=== PATIENT | female | born 1980 | race Caucasian/White ===

== ENCOUNTER 2016-07-20 17:06 | Emergency (ER) | payer OTHER ==
[2016-07-20] MEDS ORDERED: DIPH/PERTUSS(ACELL)/TETANUS VAC/PF 0.5 ML SYR (>=10YO) IM ONE (17:10)
[2016-07-20] MEDS ORDERED: HYDROCODONE/ACETAMINOPHEN 5-325 MG TABLET PO ONE (17:11)
--- NOTE | 2016-07-20 17:21 | ER Document Report ---
ED Medical Screen (RME) - General Chief Complaint: Finger Injury Stated Complaint: FINGER LACERATION Mode of Arrival: Ambulatory Information source: Patient Notes: 36 y/o F presents to ED c/o laceration/avulsion to distal right 4th finger. Pt reports avulsed tip of finger off with cooking tool. Unknown last tetanus. I have greeted and performed a rapid initial assessment of this patient. A comprehensive ED assessment and evaluation of the patient, analysis of test results and completion of the medical decision making process will be conducted by additional ED providers. TRAVEL OUTSIDE OF THE [place] IN LAST 30 DAYS: No - Related Data Allergies/Adverse Reactions: No Known Allergies Allergy (Verified 07/20/16 17:08) Past Medical History - Social History Chew tobacco use (# tins/day): No Frequency of alcohol use: None Drug Abuse: None - Past Medical History Cardiac Medical History: Denies: Hx Coronary Artery Disease, Hx Heart Attack, Hx Hypertension Pulmonary Medical History: Denies: Hx Asthma, Hx Bronchitis, Hx COPD, Hx Pneumonia Neurological Medical History: Denies: Hx Cerebrovascular Accident, Hx Seizures Endocrine Medical History: Reports: Hx Hypothyroidism Renal/ Medical History: Denies: Hx Peritoneal Dialysis Musculoskeltal Medical History: Denies Hx Arthritis Past Surgical History: Reports: Hx Thyroid Surgery. Denies: Hx Pacemaker - Immunizations Hx Diphtheria, Pertussis, Tetanus Vaccination: No Physical Exam - Extremities Hand: Laceration - avulsion/amputation of lateral aspect distal tip right 4th finger. active bleeding controlled with pressure dressing and elevation
[2016-07-20] MEDS ORDERED: BUPIVACAINE HCL 0.5 % INJ/PF 30 ML SDV INJ ONE (17:37)
--- NOTE | 2016-07-20 17:39 | ER Document Report ---
ED Hand/Wrist Injury - General Mode of Arrival: Ambulatory TRAVEL OUTSIDE OF THE [place] IN LAST 30 DAYS: No - HPI Patient complains to provider of: Laceration to the right 4th digit Injury to: Ring finger - right Onset: Just prior to arrival Where: Home Context: Other - see above - General Chief Complaint: Finger Injury Stated Complaint: FINGER LACERATION Notes: 36 year old female presents to the ED complaining of a laceration to the right distal 4th digit that occurred at home just prior to arrival. Patient explains that she was using a mandolin without a guard to cut a block of cheese and proceeded to slice the medial aspect of her 4th fingertip. Patient is complaining of pain secondary to the laceration. Patient states that she received a tetanus shot prior to the examination. (FELICIA JEAN) - Related Data Allergies/Adverse Reactions: No Known Allergies Allergy (Verified 07/20/16 17:08) Past Medical History - General Information source: Patient - Social History Smoking Status: Current Every Day Smoker Chew tobacco use (# tins/day): No Frequency of alcohol use: None Drug Abuse: None Family History: Reviewed & Not Pertinent Patient has suicidal ideation: No Patient has homicidal ideation: No - Past Medical History Cardiac Medical History: Denies: Hx Coronary Artery Disease, Hx Heart Attack, Hx Hypertension Pulmonary Medical History: Denies: Hx Asthma, Hx Bronchitis, Hx COPD, Hx Pneumonia Neurological Medical History: Denies: Hx Cerebrovascular Accident, Hx Seizures Endocrine Medical History: Reports: Hx Hypothyroidism Renal/ Medical History: Denies: Hx Peritoneal Dialysis Musculoskeltal Medical History: Denies Hx Arthritis Past Surgical History: Reports: Hx Thyroid Surgery. Denies: Hx Pacemaker - Immunizations Hx Diphtheria, Pertussis, Tetanus Vaccination: No Review of Systems - Review of Systems Constitutional: No symptoms reported EENT: No symptoms reported Cardiovascular: No symptoms reported Respiratory: No symptoms reported Gastrointestinal: No symptoms reported Genitourinary: No symptoms reported Female Genitourinary: No symptoms reported Musculoskeletal: See HPI, Other - right 4th fingertip pain secondary to laceration Skin: No symptoms reported Hematologic/Lymphatic: No symptoms reported Neurological/Psychological: No symptoms reported -: Yes All other systems reviewed and negative Physical Exam - General General appearance: Alert In distress: None - HEENT Head: Normocephalic, Atraumatic Eyes: Normal Extraocular movements intact: Yes Pupils: PERRL - Respiratory Respiratory status: No respiratory distress Breath sounds: Normal - Cardiovascular Rhythm: Regular Heart sounds: Normal auscultation - Abdominal Inspection: Normal - Back Back: Normal - Extremities General upper extremity: No: Normal inspection - see hand exam below General lower extremity: Normal inspection, Normal ROM Hand: Other - Avulsion to the lateral aspect of the tip of the right 4th digit. Good perfusion and sensation distally. No bony tenderness. Bleeding is controlled.. No: Normal - Neurological Neuro grossly intact: Yes Cognition: Normal Orientation: AAOx4 He Coma Scale Eye Opening: Spontaneous He Coma Scale Verbal: Oriented He Coma Scale Motor: Obeys Commands He Coma Scale Total: 15 Speech: Normal - Psychological Associated symptoms: Normal affect, Normal mood - Skin Skin Temperature: Warm Skin Moisture: Dry Skin Color: Normal Course - Re-evaluation Re-evalutation: 07/20/16 18:37 I personally performed the services described in the documentation, reviewed and edited the documentation which was dictated to my scribe in my presence, and it accurately records my words and actions. Patient presents emergency Department cut forth finger on a slicer grating cheese at home. She has a small avulsion of the lateral aspect of her tip with bleeding well controlled with pressure. No bony tenderness or deformity good pulses perfusion no other injuries to the area. It does not require suture repair I did digital block with Sensorcaine with complete resolution of discomfort pressure dressing applied bleeding is controlled splint placed on the finger. She be discharged home follow up with her primary care physician in 2-3 days and discussed reasons for ED return sooner (NEAL KEITH) Discharge - Discharge Clinical Impression: finger tip partial avulsion Condition: Stable Disposition: HOME, SELF-CARE Additional Instructions: Avulsion Injury finger tip You have an avulsion injury -- a loss of skin which can't be helped with stitches. When large, these injuries can require skin grafting. Smaller defects or shallow avulsions usually heal well with dressings. Keep the dressing clean and dry. If the bandage becomes wet, remove it, blot the area dry, and apply a fresh dressing. Change the dressings every day. Complete healing may take anywhere from 10 days to two months. The healing time depends on the size and depth of the avulsion and on the amount of crushing of underlying tissues. Re-examination by the physician is often necessary. If any signs of infection occur (swelling, redness, increasing tenderness, red streaks, profuse purulent drainage from the avulsion, tender lumps in the armpit or groin above the avulsion, or fever), see your doctor immediately. Follow-up with her primary care physician in 2 days for wound recheck and make sure there is no signs of infection return for increasing worsening or new symptoms Prescriptions: Hydrocodone/Acetaminophen [[place] 5-325 mg Tablet] 1 tab PO TID #12 tablet Scribe Documentation - Scribe Written by Mik:: Mik Hart, 07/20/2016 0144 acting as scribe for :: Krzysztof
[2016-07-20 19:07] VITALS: BP 121/72
== END 2016-07-20 19:05 | disposition home or self-care (01) ==
LOC: ER 17:06
DX: S61.309A Unspecified open wound of unspecified finger with damage to nail, initial encounter (principal); W26.0XXA Contact with knife, initial encounter; F17.210 Nicotine dependence, cigarettes, uncomplicated
CPT/HCPCS: 90471; 90715; 99283